=== PATIENT | female | born 1990 | race Caucasian/White ===

== ENCOUNTER 2016-10-22 09:19 | Emergency (ER) | payer OTHER ==
[~2016-10-22] VITALS: Ht 167.6 cm; Wt 65.5 kg
[~2016-10-22 09:19] MED LIST: DOCU-41 PO; IBUP-1827 PO; Ibuprofen PO; PREN1TAB25 PO; PREN1TAB87 PO
[2016-10-22 09:21] VITALS: BP 97/57; PULSE 59; RESP 16; O2SAT 98
--- NOTE | 2016-10-22 09:36 | ED.REPORT ---
HPI-Extremity Problem Lower Date of Service October 22, 2016 ED Provider: Arvind Tim MD Patient is a healthy 26 year old female who presents to [facility] Emergency Department accompanied by her mother complaining of right ankle pain and swelling after she fell down the stairs at home earlier this morning. She reports her right ankle has been inverted and she heard a pop and a crunch. She reports pain 6/10 at the moment. She was not able to bear weight after the fall. She denies other symptoms. Nursing Notes Stated Complaint: RIGHT ANKLE INJURY Chief Complaint: Extremity Trauma Nursing Notes Reviewed: Yes Allergies: Coded Allergies: Penicillins (Verified Allergy, Unknown, 03/18/14) Scheduled Docusate Sodium (Colace) 100 Mg Capsule 100 MG PO BID Vit W-Ca,Fe,FA(<1 mg) ( Vitamins) 1 Each Tablet 1 EACH PO DAILY Vit#96/Ferrous Fum/FA ( Tablet) 1 Each Tablet 1 EACH PO DAILY Scheduled PRN ([Ibuprofen]) 800 MG TABLET 800 MG PO Q6H PRN PRN For Pain Ibuprofen (Ibuprofen) 600 Mg Tablet 600 MG PO Q6H PRN PRN For Mild Pain General Time Seen by MD: 09:31 Chief Complaint Ankle injury right Hx Obtained From: Patient Arrived By: Walk-in Onset Occurred: Just prior to arrival Symptom Duration: Since onset Caused by: Accidental Context: Occurred at: Home injury Location: : Ankle right (lateral malleolus) Quality: Aching Severity: Current: Pain level 6 out of 10 Severity: Maximum: Pain level 6 out of 10 Pertinent Negative: Pt denies other symptoms Exacerbated by: Range of motion Relieved by: Immobilization Past Medical History Past Medical History Notes: None Smoking History Never Smoker Social History Alcohol Use: Denies alcohol use Other Social History: Local resident Ambulatory Status Independent Review of Systems Basic Review of Systems Eyes: Vision NL ENT: Hearing NL Respiratory: No shortness of breath Cardiovascular: No chest pain, No dyspnea on exertion GI: No abdominal pain, No anorexia : No dysuria Hematologic: No bleeding Allergy / Immune: No allergy Psychiatric: Normal thought content Physical Exam Initial Vital Signs Vital Signs (First) Date Time Temp Pulse Resp B/P Pulse Ox O2 Delivery O2 Flow Rate FiO2 10/22/16 09:21 36.8 59 16 97/57 98 Room Air Initial VS: Reviewed, Vital signs normal Right Ankle: Positive: ROM reduced, Swelling present... (Severe), Tender lateral malleolus, Tenderness present... (Severe) General/Constitutional: Awake, Alert, No acute distress, Well appearing, Well developed, Well hydrated, Well nourished, Cooperative Respiratory / Chest: Atraumatic, Breath sounds NL, Breath sounds = bilat Cardiovascular: Heart rate NL, Regular rhythm, Heart sounds NL, Cap refill not delayed Skin: Atraumatic, No rash, Warm, Dry, Intact Neurologic: Oriented X3, Speech NL, No motor deficits, No sensory deficits Head / Eyes: Atraumatic, Normocephalic Abdomen: Atraumatic, Soft, Non-tender Upper Extremity / MS: Atraumatic, Inspection NL, Full range of motion Interpretation & Diagnostics X-Ray Interpretation Xray Interpretation: No visualized acute fracture or dislocation. However, if clinical concern and/or pain persist, short interval imaging followup in 7-10 days is recommended, as occult injury cannot be definitively excluded.. X-Ray Ordered: Ankle right Interpretation / Wet Read by: Interpret - Radiologist Re-Eval/Medical Decision Med Decision/Clinical Course In summary, patient is a 26 year old female who presented to ED with acute right ankle pain and swelling after a fall this morning at her home. Right ankle imaging revealed no acute fractures. Patient will be discharged home in air cast and crutches. She will follow up with her PCP in a week. Differential Diagnosis: Positive: Fracture (right ankle) Discharge & Departure Shift Change Sign-Out Response to Therapy: Improved Impression: Primary Impression: Ankle sprain Encounter type: initial encounter Involved ligament of ankle: unspecified ligament Laterality: right Qualified Code: S93.401A - Sprain of unspecified ligament of right ankle, initial encounter Disposition: Home Discharge Condition Condition: Stable Patient Instructions: Ankle Sprain (GEN) Additional Instructions: Thank you for seeking care at Emergency Room today. The good news is you don't have ankle fracture. You have an ankle sprain. The best remedy for this is RICE: rest, ice, compression, elevation, early mobilization, and support orthosis with early weightbearing. Please take Tylenol or Ibuprofen for pain as needed. Please return to Emergency Room if you develop new symptoms or your pain gets worse. Please call your PCP and make a follow up appointment within a week. Thank you for letting us partake in your care today. Thank you for seeking care at Emergency Room today. The good news is you dont have ankle fracture. You have an ankle sprain. The best remedy for this is RICE: rest, ice, compression, elevation, early mobilization, and support orthosis with early weightbearing. Please take Tylenol or Ibuprofen for pain as needed. Please return to Emergency Room if you develop new symptoms or your pain gets worse. Please call your PCP and make a follow up appointment within a week. Thank you for letting us partake in your care today. Referrals: Domi Noguera MD (PCP) EDSupervising Provider for APC: Arvind Tim MD Attending Statement Attending attestation: I saw this patient in conjunction with the above named resident. I was present for all salmon portions of the history taking and physical examination. I agree with the workup, evaluation, treatment and disposition. Arvind Tim MD copies to: Domi Noguera MD, Beck O MD October 22, 2016 09:36 Miladis Tom DO October 22, 2016 09:59
--- NOTE | 2016-10-22 10:23 | DRSVH ---
PROCEDURE: X-RAY RIGHT ANKLE, MINIMUM THREE VIEWS ([id number]) INDICATIONS: right ankle injury TECHNIQUE: 3 views of the ankle were acquired. COMPARISON: None. FINDINGS: Bones: No fractures or dislocations. Ankle mortise is normally aligned. No suspicious bony lesions . Soft tissues: No tibiotalar joint effusion. Achilles tendon appears normal. IMPRESSION: No visualized acute fracture or dislocation. However, if clinical concern and/or pain pe rsist, short interval imaging followup in 7-10 days is recommended, as occult injury cannot be defini tively excluded.. Dictated by: Stefania Barry M.D. on 10/22/2016 at 10:20 Approved by: Stefania Barry M.D. on 10/22/2016 at 10:21
[2016-10-22 11:19] VITALS: BP 99/58; PULSE 62; RESP 16; O2SAT 98
== END 2016-10-22 11:20 | disposition home or self-care (01) ==
LOC: SED 09:19
DX: S93.401A Sprain of unspecified ligament of right ankle, initial encounter (principal); W10.8XXA Fall (on) (from) other stairs and steps, initial encounter; Y92.009 Unspecified place in unspecified non-institutional (private) residence as the place of occurrence of the external cause; Y93.89 Activity, other specified; Y99.8 Other external cause status; Z88.0 Allergy status to penicillin